=== PATIENT | male | born 1980 | race Two or more races ===

== ENCOUNTER 2024-12-02 09:12 | Emergency (ER) | payer MEDICAID, SELFPAY ==
[2024-12-02 09:27] VITALS: BP 158/83; PULSE 88; RESP 18; TEMP 36.9; O2SAT 99
--- NOTE | 2024-12-02 09:31 | XR_ITS ---
Examination: Right knee 2 views TECHNIQUE: AP oblique right knee 2 views Date and time: December 02, 2024 0933 hours INDICATIONS: Right knee pain beginning 4 months ago. FINDINGS: Moderate to advanced osteoarthritis medial joint space No fracture or dislocation IMPRESSION: Moderate to advanced osteoarthritis medial joint
--- NOTE | 2024-12-02 09:32 | PD.EDLOWEX ---
Lower Extremity Injury RME/HPI General Chief Complaint: Extremity Injury, Lower Stated Complaint: R) KNEE PAIN, 12/13 Time Seen by Provider: 12/02/24 09:18 Source: patient Arrival date/time: 12/02/24 09:12 43-year-old male with no known medical history presents to the emergency room with a chief complaint of swelling and tenderness to his right knee x 1 month Mode of arrival: ambulatory Limitations: no limitations Related Data Previous Rx's ?Medication ?Instructions ?Recorded Hydrocodone/Acetaminophen * (NORCO 1 tab PO Q6HR PRN PAIN #14 tabs 08/15/15 5/325 *) Allergies Allergy/AdvReac Type Severity Reaction Status Date / Time No Known Allergies Allergy Verified 12/02/24 09:17 Review of Systems Review of Systems Systems Reviewed: All systems reviewed, normal except as documented Constitutional Constitutional: Reports system reviewed and no additional complaints, except as documented, Denies fatigue, Denies fever(s), Denies headache(s) and Denies weakness Eyes Eyes: Reports system reviewed and no additional complaints, except as documented, Denies blurry vision and Denies change in vision ENT Ears, Nose, Mouth, and Throat: Reports system reviewed and no additional complaints, except as documented, Denies otalgia, Denies headache(s), Denies nasal congestion, Denies throat swelling and Denies vertigo Cardiovascular Cardiovascular: Reports system reviewed and no additional complaints, except as documented, Denies chest pain, Denies dyspnea and Denies dyspnea on exertion Respiratory Respiratory: Reports system reviewed and no additional complaints, except as documented, Denies chest congestion, Denies cough, Denies dyspnea, Denies dyspnea on exertion and Denies wheezing Gastrointestinal Gastrointestinal: Reports system reviewed and no additional complaints, except as documented, Denies abdominal pain, Denies cramping, Denies nausea and Denies vomiting Genitourinary Genitourinary: Reports system reviewed and no additional complaints, except as documented, Denies dysuria and Denies hematuria Musculoskeletal Musculoskeletal: Reports system reviewed and no additional complaints, except as documented, Reports arthralgias, Denies back pain, Reports joint swelling and Reports limited range of motion Integumentary/Breasts Skin/Breast: Reports system reviewed and no additional complaints, except as documented and Denies wounds Neurologic Neurologic: Reports system reviewed and no additional complaints, except as documented, Denies confusion, Denies headache(s), Denies lack of coordination, Denies vertigo and Denies weakness Psychiatric Psychiatric: Reports system reviewed and no additional complaints, except as documented, Denies anxiety, Denies confusion, Denies depression, Denies paranoia, Denies suicidal ideation and Denies tactile hallucinations Endocrine Endocrine: Reports system reviewed and no additional complaints, except as documented and Denies fatigue Hematologic/Lymphatic Hematologic/Lymphatic: Reports system reviewed and no additional complaints, except as documented and Denies lymphadenopathy Allergic/Immunologic Allergic/Immunologic: Reports system reviewed and no additional complaints, except as documented, Denies throat swelling, Denies urticaria and Denies wheezing Past Medical History Social History SMOKING STATUS: Never smoker ED Exam General Limitations: Present no limitations General appearance: Present alert and in no apparent distress Head Head exam: Present atraumatic Eye Eye exam: Present normal appearance, PERRL and EOMI ENT ENT exam: Present normal exam, normal oropharynx and mucous membranes moist Neck Neck exam: Present normal inspection, full ROM and trachea midline Chest Chest inspection: Present normal inspection and symmetric chest wall rise Respiratory Respiratory exam: Present normal lung sounds bilaterally Cardiovascular Cardiovascular exam: Present regular rate, normal rhythm and normal heart sounds Abdominal Exam Abdominal exam: Present soft and normal bowel sounds Extremities Exam Extremities exam: Present normal inspection and full ROM Expanded Lower Extremity Exam Hip/Pelvis exam: Present normal inspection Upper leg exam: Present normal inspection Knee exam: Present tenderness, swelling, effusion, pain with valgus and pain with varus; Absent erythema Back Exam Back exam: Present normal inspection and full ROM Neurological Exam Neurological exam: Present alert, oriented X3 and CN II-XII intact Psychiatric Psychiatric exam: Present normal affect and normal mood Skin Skin exam: Present warm, dry, intact and normal color Course Quality Measures none Orders Category Date Time Status michele wrap [Splint / Immobilizer] STAT Care 12/02/24 09:31 Active XR knee RT 3V Stat Exams 12/02/24 09:31 Completed Vital Signs Vital signs: Vital Signs Temperature 98.5 F 12/02/24 09:27 Pulse Rate 88 12/02/24 09:27 Respiratory Rate 18 12/02/24 09:27 Blood Pressure 158/83 H 12/02/24 09:27 Pulse Oximetry (%) 99 12/02/24 09:27 Oxygen Delivery Method Room Air 12/02/24 09:27 Extremity Injury, Lower MDM Narrative MDM Narrative:: 43-year-old male with no known medical history presents to the emergency room with a chief complaint of swelling and tenderness to his right knee x 1 month Patient is hemodynamically stable and in no apparent distress. There is no fever there is no tachycardia there is no signs of any sepsis Physical examination shows swelling to the patient's right knee. Patient states has been dealing with this for about a month and states he has not seen a doctor till now. X-ray of the right knee was negative for any acute fractures or dislocations Patient was educated to follow-up with primary care provider as he will need a referral for an MRI for further management Patient was discharged and educated to follow-up with primary care provider in the next 24 to 48 hours and return to the emergency room for any evidence of worsening signs or symptoms Patient data External records reviewed:: [facility] previous records Clinical information provided by:: patient Social determinants that could affect healthcare access:: none Patient has the following chronic illnesses:: No chronic How is presenting disease/condition affected by chronic disease/condition?: no chronic disease Evaluation data The following diagnostics were reviewed and interpreted by me:: lab results and radiology exam(s) Lab and/or radiology exams considered but not ordered:: Labs and radiology exams considered and ordered Interpretation Summary: X-ray knee-no acute fracture or dislocation Medications / Prescriptions Medications or Prescriptions considered but not ordered:: Medication given Medication administrations:: No medication given Consultations Consultation(s) initiated? (list below): No Diagnosis Extremity Injury, Lower Differential Diagnosis: acute internal derangement of knee and other (Right knee sprain/right knee fracture/right knee dislocation) Most likely diagnosis given after review of the tests above:: Right knee sprain Admission Indicated Admission indicated?: not indicated Admission Request Was there a request for admission?: No Disposition Plan Disposition Plan: Discharge Discharge Attestation Discharge Attestation: The patient and all family members were given an opportunity to ask questions and understood the discharge instructions. Discharge instructions specifically effects, indications for sooner follow up or return to the emergency department, and the expected course of current diagnosis. Patient condition: Stable Discharge Plan Plan Patient Disposition: HOME (Self Care) Prescriptions/Referrals Prescriptions/Med Rec: No Action Hydrocodone/Acetaminophen * (NORCO 5/325 *) 1 TAB tablet 1 tab PO Q6HR PRN (Reason: PAIN) Qty: 14 0RF Rx Instructions: FOR PAIN Referrals: Erin Gaitan NP [Primary Care Provider] - In 1 week Problem List Clinical Impression: Knee sprain Patient/Caregiver Discharge Instructions Education Materials: ED MICHELE Wrap, ED Knee Sprain Additional Instructions: Por favor, consulte con gonzales m?dico de cabecera en las pr?ximas 24 a 48 horas. Se le realizaron radiograf?as de la rodilla derecha y el resultado fue negativo para cualquier fractura o luxaci?n aguda. Deber? consultar con gonzales m?dico de cabecera, ya que podr?a indicarse sherri resonancia magn?darnell de la rodilla derecha para verificar si hay da?o o desgarro de ligamentos. Mantenga la venda Michele en gonzales lugar, ya que la compresi?n aliviar? los s?ntomas. Por favor, descanse, aplique hielo y eleve la extremidad. Si observa cualquier signo de empeoramiento de los signos o s?ntomas, acuda a urgencias de inmediato. Print Language: Nigerian Stand Alone Forms: [place] Award Info., Work/School Release, Patient Portal Info Letter PA/[employer] SERVICE TEAM MEMBER Supervising Physician PA/MEAT SERVICE TEAM MEMBER Supervising Physician: Dr. Morse
== END 2024-12-02 11:29 | disposition home or self-care (01) ==
PROVIDERS: Emergency Provider Nurse Practitioner Family; PCP Nurse Practitioner Women's Health
DX: S83.91XA Sprain of unspecified site of right knee, initial encounter (principal); X58.XXXA Exposure to other specified factors, initial encounter
CPT/HCPCS: 73562; 99284